=== PATIENT | male | born 1935 | race Caucasian/White ===

== ENCOUNTER 2016-06-21 19:00 | Emergency (ER) | payer MEDICARE, MEDICAID ==
[2016-06-21 19:16] LABS: Urine Bilirubin 3 mg/dl (NEGATIVE); Urine Blood 50 /ul (NEGATIVE); Urine Ketone 5 mg/dL (NEGATIVE); Urine Nitrite Negative (NEGATIVE); Urine Protein >=300 mg/dL (NEGATIVE); Urine Specific Gravity >=1.030 SP.GR. (1.005-1.030); Urine Urobilinogen Normal (NORMAL)
[2016-06-21 19:29] LABS: Urine Appearance Cloudy; Urine Bacteria 2+; Urine Color Amber; Urine Fine Granular Cast 0-5 /LPF; Urine Hyaline Cast 0-5 /LPF; Urine RBC 0-5 /hpf (0-5); Urine WBC 0-5 /hpf (0-5)
[2016-06-21 19:30] LABS: Urine Amorphous Sediment Many - 3+ (NONE-FEW)
--- OUTSIDE RECORDS SUMMARY | 2016-06-21 19:35 | XMS REPORT | Continuity of Care Document ---
:1935 Author Organization [facility] ([facility]) Address [address] [place] [address] Phone [phone] Care Team Providers Name Role Phone Unavailable Primary Care Provider Unavailable Source Comments This disclosure is being made pursuant to the Care Everywhere program, applicable federal and state laws, and may not contain all informaitonavailable regarding this patient.[facility] ([facility]) Active Allergies and Adverse Reactions No Active Allergies Current Medications Not on file Active Problems Problem Noted Date Chest pain, unspecified 03/09/2008 Social History Tobacco Use Types Packs/Day Years Used Date Never Assessed Last Filed Vital Signs Vital Sign Reading Time Taken Blood Pressure 158/48 03/12/2008 8:00 AM [employer] Pulse 50 03/12/2008 8:00 AM [employer] Temperature 37 C (98.6 F) 03/12/2008 8:00 AM [employer] Respiratory Rate 20 03/12/2008 8:00 AM [employer] Height 1.68 m (5' 6.14") 03/09/2008 2:46 PM [employer] Weight 87.1 kg (192 lb 0.3 oz) 03/11/2008 8:00 PM [employer] Body Mass Index 30.86 03/11/2008 8:00 PM [employer] Oxygen Saturation - - Plan of Care Health Maintenance Due Date Last Done Comments Hepatitis B Vaccine (1 of 3 - Primary Series) 1935 Tdap Vaccine 1945 Td Vaccine 02/24/1952 Colonoscopy 1984 Zoster Vaccine 1994 Pneumococcal Vaccine (1 of 2 - PCV13) 1999 Lipid Disorder Screening 03/10/2013 03/10/2008 Influenza Vaccine: Seasonal (#1) 10/30/2015 Results from Last 3 Months Not on file
[2016-06-21] MEDS ORDERED: NORMAL SALINE 1,000 ML IV PRN (19:39)
--- NOTE | 2016-06-21 19:40 | ERNOTE ---
<Teresita Atkins - Last Filed: 06/21/16 20:00> Neuro HPI ER Record Presenting Symptoms: weakness Time Seen by Provider: 06/21/16 19:20 Source: family Exam Limitations: clinical condition Immunizations: IMMUNIZATION HX Immunizations Up to Date unknown History of Influenza Vaccine More Information Required Hx Pneumococcal Vaccination More Information Required Allergies/Adverse Reactions: Allergies Allergy/AdvReac Type Severity Reaction Status Date / Time Unobtainable Allergy Unverified 06/21/16 19:30 Home Medications: HOME MEDICATIONS Aspirin [Aspirin EC] 81 mg PO DAILY 06/21/16 [Last Taken Unknown] Cholecalciferol (Vitamin D3) [Vitamin D3] 1,000 unit PO DAILY 06/21/16 [Last Taken Unknown] Ferrous Sulfate 324 mg PO BID 06/21/16 [Last Taken Unknown] Finasteride [Proscar] 5 mg PO DAILY 06/21/16 [Last Taken Unknown] Furosemide [Lasix] 30 mg PO DAILY 06/21/16 [Last Taken Unknown] Isosorbide Mononitrate [Imdur] 120 mg PO DAILY 06/21/16 [Last Taken Unknown] Pantoprazole Sodium [Protonix] 20 mg PO DAILY 06/21/16 [Last Taken Unknown] Simvastatin 10 mg PO HS 06/21/16 [Last Taken Unknown] Tamsulosin HCl [Flomax] 0.4 mg PO HS 06/21/16 [Last Taken Unknown] traZODone HCL [Desyrel] 100 mg PO DAILY 06/21/16 [Last Taken Unknown] - History of Present Illness Narrative: Family reports that patient was getting around normal and was alert two days ago. Nobody saw him yesterday. This morning his granddaughter found him weaker than usual, not getting around but patient refused to be seen. This afternoon patient very weak, slumped over in his chair. Patient answer only few question, can't give details, no report of recent illness, injury. Onset: gradual onset - Character of Deficits New weakness: Present: general (diffuse) Baseline Cognition: Present: alert, oriented x 4 Baseline Gait: Present: walks w/o assistance Review of Systems - Narrative Narrative: unable to obtain - Patient's Past Medical History Patient History - Medical: Renal Failure, Other Patient History - Cardiac/Respiratory: Myocardial Infarction Patient History - Cancer: No Hx of Cancer - Social History Living Situations: alone Smoking Status: Current every day smoker Alcohol Use: none Drug Use: none - Immunizations Immunizations Up to Date: - unknown Hx Pneumococcal Vaccination: More Information Required to Determine History of Influenza Vaccine: More Information Required to Determine Physical Exam - Physical Exam General Appearance: Present: wd/wn, alert, no apparent distress Eye Exam: Normal inspection: bilateral, PERRL: bilateral Ears, Nose, Throat: Present: normal except -, dry mucous membranes, other - small amount of yellow on nose (vomit?) Neck: Present: normal inspection Respiratory: Present: no respiratory distress, normal breath sounds, no accessory muscle use, lungs clear Cardiovascular/Chest: Present: regular rate, rhythm, no murmur Gastrointestinal/Abdominal: Present: normal bowel sounds, nondistended, soft, tenderness - diffusely Extremity Exam: Present: normal inspection, no edema Neurological Exam: Present: alert, other - follows some commands, squezes hand, generalized weak, mumbles Skin Exam: Present: warm/dry, pallor [place] Coma Scale - Assess Eye Opening: Spontaneous Motor: Obeys Commands Verbal: Confused - Total Coma Scale Total: 14 ED Progress - Vital Signs Patient's Vital Signs:: I have reviewed the patient's vital signs. Vital Signs: Vital Signs 06/21/16 06/21/16 19:04 19:18 Temperature 36.4 C L Pulse Rate 100 100 Respiratory 24 H Rate Blood Pressure 146/61 O2 Sat by Pulse 99 Oximetry - EKG EKG: NSR - slight sinustachy, other - Poor R progression anterior leads EKG read: Interp. by me - Progress/Reassessment Chief Complaint: Altered Mental Status - Transfer of Care Physician Sign Out: Teresita Atkins Receiving Physician: [place] Read Departure Clinical Impression: Renal failure (ARF), acute on chronic Sepsis Qualifiers: Sepsis type: sepsis due to unspecified organism Qualified Code(s): A41.9 - Sepsis, unspecified organism Myocardial infarct Qualifiers: Myocardial infarction ST status: non-ST elevation myocardial infarction Qualified Code(s): I21.4 - Non-ST elevation (NSTEMI) myocardial infarction - Departure Disposition: Transferred to other hospital Condition: Serious <D[place] Read - Last Filed: 06/21/16 20:35> Neuro HPI ER Record Immunizations: IMMUNIZATION HX Immunizations Up to Date unknown History of Influenza Vaccine More Information Required Hx Pneumococcal Vaccination More Information Required ED Progress - Results and Orders Patient's Lab Results:: I have reviewed the patient's lab results. - Vital Signs Patient's Vital Signs:: I have reviewed the patient's vital signs. Vital Signs: Vital Signs 06/21/16 06/21/16 06/21/16 19:04 19:18 19:35 Temperature 36.4 C L Pulse Rate 100 100 98 Respiratory 24 H 24 H Rate Blood Pressure 146/61 149/76 O2 Sat by Pulse 99 99 Oximetry - EKG EKG: NSR, ST depression - V6 only - Progress/Reassessment Progress Note-Subjective: 06/21/16 20:25 I assumed care at shift change of this 81-year-old male with weakness. He has now returned with impressive and significant lab findings with white blood cell count of 8800 but with 91 neutrophils, potassium is elevated 5.4, BUN markedly elevated at 118 with an elevated creatinine 7.87. His lactic acid is elevated at 3.2 with elevated bilirubin of 4.3 and elevated ALT of 839. His troponin level was 3.041. It would appear the patient has some Multi-System disease with apparent sepsis renal failure and possible MD. He will definitely need a higher level of care than we can provide here at [facility]. [facility] and arrange for [facility] Plan - Plan Plan: [facility] [place] [facility].
[2016-06-21 19:43] LABS: Hematocrit 35.4 % (42.0-52.0); Hemoglobin 11.2 gm/dL (13.5-18.0); Mean Cell Volume 103.2 fl (78-100); Mean Corpuscular Hemoglobin 32.7 pg (27-31); Mean Corpuscular Hgb Conc 31.6 g/dl (32-36); Platelet Count 81 K/mm3 (150-450); Red Blood Count 3.43 M/mm3 (4.7-6.0); Red Cell Distribution Width 16.6 % (11.5-14.0); White Blood Count 8.8 K/mm3 (4.0-10.5)
[2016-06-21 19:53] LABS: Neutrophil % 91.6 % (42-75.0)
[2016-06-21 20:07] LABS: Anion Gap 23.8 mmol/L (6.8-13.8); Bilirubin, Total 4.3 mg/dL (0.0-1.1); Ca. Corrected For Albumin 8.9 mg/dL (8.4-10.2); Calcium * 9.2 mg/dL (7.9-10.9); Carbon Dioxide 18.6 mmol/L (24-32.6); Potassium 5.4 mmol/L (3.4-4.6); Total Protein 6.9 gm/dL (6.2-8.2)
[2016-06-21 20:09] LABS: Troponin I 3.041 ng/ml (0.00-0.10)
[2016-06-21] MEDS ORDERED: PIPERACILLIN SODIUM/TAZOBACTAM 3.375 GM in DEXTROSE 5 % IN WATER 100 ML IV ONE ×2 (20:38)
[2016-06-21 22:53] VITALS: BP 135/91
== END 2016-06-22 | disposition short-term general hospital (02) ==
LOC: ER 19:00
PROC: 0T9B70Z Drainage of Bladder with Drainage Device, Via Natural or Artificial Opening (ICD-10-PCS; principal; 2016-06-21)
DX: N17.9 Acute kidney failure, unspecified (principal); A41.9 Sepsis, unspecified organism; I21.4 Non-ST elevation (NSTEMI) myocardial infarction; F17.210 Nicotine dependence, cigarettes, uncomplicated